=== PATIENT | female | born 1990 | race American Indian/Alaskan Native ===

== ENCOUNTER 2016-06-15 00:39 | Emergency (ER) | payer MEDICAID, OTHER ==
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
[2016-06-15 01:14] VITALS: BP 129/75
[2016-06-15] MEDS ORDERED: Acetaminophen/HYDROcodone 325-10 MG Tab PO ONE (01:21)
== END 2016-06-15 02:00 | disposition home or self-care (01) ==
LOC: DL.ED 00:39
DX: S00.03XA Contusion of scalp, initial encounter (principal); S00.83XA Contusion of other part of head, initial encounter; S10.93XA Contusion of unspecified part of neck, initial encounter; S40.021A Contusion of right upper arm, initial encounter; S80.11XA Contusion of right lower leg, initial encounter; S00.412A Abrasion of left ear, initial encounter; F17.210 Nicotine dependence, cigarettes, uncomplicated; Z98.51 Tubal ligation status; Y04.0XXA Assault by unarmed brawl or fight, initial encounter
CPT/HCPCS: 70450; 70486; 99284; A9270

== ENCOUNTER 2016-09-11 18:01 | Emergency (ER) | payer MEDICAID, OTHER ==
[2016-09-11 18:05] VITALS: BP 112/68
[2016-09-11] MEDS ORDERED: Acetaminophen/HYDROcodone 325-10 MG Tab PO ONE (18:18)
[2016-09-11] MEDS ORDERED: Amoxicillin/Clavulanate K 875-125 MG Tab PO ONE (18:20)
[2016-09-11 19:05] LABS: CHLORIDE,CL 106 mmol/L (101-111); SODIUM,NA 141 mmol/L (135-145)
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
== END 2016-09-11 19:24 | disposition home or self-care (01) ==
LOC: DL.ED 18:01
DX: S02.32XA Fracture of orbital floor, left side, initial encounter for closed fracture (principal); Y04.0XXA Assault by unarmed brawl or fight, initial encounter; Y92.019 Unspecified place in single-family (private) house as the place of occurrence of the external cause; F17.210 Nicotine dependence, cigarettes, uncomplicated; Z88.8 Allergy status to other drugs, medicaments and biological substances
CPT/HCPCS: 36415; 70450; 70486; 80053; 80305; 81001; 85025; 99284; A9270; G0480

== ENCOUNTER 2016-09-12 13:12 | Emergency (ER) | payer MEDICAID, OTHER ==
[2016-09-12 13:26] VITALS: BP 123/72
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
== END 2016-09-12 14:13 | disposition home or self-care (01) ==
LOC: DL.ED 13:12
DX: S02.32XD Fracture of orbital floor, left side, subsequent encounter for fracture with routine healing (principal); F17.210 Nicotine dependence, cigarettes, uncomplicated; Z79.899 Other long term (current) drug therapy; Y00.XXXD Assault by blunt object, subsequent encounter
CPT/HCPCS: 99283

== ENCOUNTER 2016-11-28 19:14 | Emergency (ER) | payer MEDICAID, OTHER ==
[2016-11-28 22:41] VITALS: BP 122/65
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
[2016-11-28] MEDS ORDERED: Acetaminophen 325 MG Tab PO ONE (23:15)
== END 2016-11-28 23:35 | disposition home or self-care (01) ==
LOC: DL.ED 19:14
DX: M20.022 Boutonniere deformity of left finger(s) (principal); R45.6 Violent behavior; F17.210 Nicotine dependence, cigarettes, uncomplicated; Z88.6 Allergy status to analgesic agent
CPT/HCPCS: 73140; 99283; A9270

== ENCOUNTER 2017-07-29 19:11 | Emergency (ER) | payer MEDICAID, OTHER ==
[2017-07-29 19:20] VITALS: BP 110/66
[2017-07-29 19:43] LABS: ACETAMINOPHEN 294.6; CHLORIDE,CL 107 mmol/L (101-111); SODIUM,NA 138 mmol/L (135-145)
[2017-07-29] MEDS ORDERED: Acetylcysteine 20% 200 MG/ML 4 ML Nebulizer Soln SDV PO ONE (20:33)
[2017-07-29] MEDS ORDERED: Sodium Chloride 0.9% 1,000 ML IV ONE (20:47)
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
--- NOTE | 2017-07-31 19:29 | EKG ---
07/29/2017 - CARI WHIPPLE - TIME: 7:17 p.m. FINDINGS: EKG shows a heart rate of 79 beats per minute. EKG shows sinus rhythm. No ST abnormality. No T-wave inversions. [facility] /[id number]
== END 2017-07-29 21:25 ==
LOC: DL.ED 19:11
DX: R79.89 Other specified abnormal findings of blood chemistry (principal); Z88.6 Allergy status to analgesic agent; F17.210 Nicotine dependence, cigarettes, uncomplicated; Y33.XXXA Other specified events, undetermined intent, initial encounter
CPT/HCPCS: 36415; 70486; 80053; 80305; 81001; 82150; 83690; 84703; 85025; 93005; 99285; G0480; J7030

== ENCOUNTER 2018-03-14 21:41 | Emergency (ER) | payer MEDICAID, OTHER ==
[2018-03-14 21:49] VITALS: BP 118/70
--- NOTE | 2018-03-14 21:53 | EDM.PDOC ---
ED HPI GENERAL MEDICAL PROBLEM - General Chief Complaint: Chest Pain Stated Complaint: Pt Thinks She Has Pneumonia [id number] Time Seen by Provider: 03/14/18 21:50 Source of Information: Reports: Patient History Limitations: Reports: No Limitations - History of Present Illness INITIAL COMMENTS - FREE TEXT/NARRATIVE: cold sx x 3 days with productive cough sinus congestion, throat sore during night, maybe fever yesterday as felt sweaty. Using OTC cough and cold medication. Right lower rib pain with cough. Right Thoracic Pain Score (Numeric/FACES): 8 - Related Data Allergies Allergy/AdvReac Type Severity Reaction Status Date / Time ibuprofen Allergy Vomiting Verified 03/14/18 21:49 Home Meds: Home Meds Clindamycin HCl [Cleocin] 1 tab PO ASDIRECTED 03/14/18 [History] Past Medical History - Past Health History Medical/Surgical History: Denies Medical/Surgical History HEENT History: Reports: None Cardiovascular History: Reports: Heart Murmur Respiratory History: Reports: None Gastrointestinal History: Reports: None Genitourinary History: Reports: None RECORDS ASSISTANT History: Reports: None Musculoskeletal History: Reports: None Other Musculoskeletal History: orbital fracture Neurological History: Reports: None Psychiatric History: Reports: None Endocrine/Metabolic History: Reports: None Hematologic History: Reports: None Immunologic History: Reports: None Oncologic (Cancer) History: Reports: None Dermatologic History: Reports: None - Infectious Disease History Infectious Disease History: Reports: None - Past Surgical History Female Surgical History: Reports: Section, Tubal Ligation Social & Family History - Family History Family Medical History: Noncontributory - Caffeine Use Caffeine Use: Reports: Soda - Living Situation & Occupation Living situation: Reports: Single Occupation: Unemployed ED ROS GENERAL - Review of Systems Review Of Systems: ROS reveals no pertinent complaints other than HPI. ED EXAM, GENERAL - Physical Exam Exam: See Below Exam Limited By: No Limitations General Appearance: Alert, No Apparent Distress Eye Exam: Bilateral Eye: EOMI Ears: Normal External Exam, Normal TMs Nose: Normal Inspection Throat/Mouth: Normal Inspection, Normal Voice Head: Atraumatic, Normocephalic Neck: Normal Inspection, Full Range of Motion. No: Lymphadenopathy (L), Lymphadenopathy (R) Respiratory/Chest: No Respiratory Distress, Decreased Breath Sounds (slight right lower poor inspiratory effort). No: Crackles, Rales, Rhonchi, Wheezing Cardiovascular: Normal Peripheral Pulses, Regular Rate, Rhythm GI/Abdominal: Normal Bowel Sounds, Soft Extremities: Normal Inspection Neurological: Alert, Oriented, Normal Cognition Psychiatric: Normal Affect, Normal Mood Skin Exam: Warm, Dry, Intact, Normal Color Course - Vital Signs Last Recorded V/S: Last Vital Signs Temp 97.6 F 03/14/18 21:46 Pulse 114 H 03/14/18 21:46 Resp 18 03/14/18 21:46 BP 118/70 03/14/18 21:46 Pulse Ox 100 03/14/18 21:46 - Orders/Labs/Meds Orders: Active Orders 24 hr Category Date Time Status CXR [Chest 2V] [CR] Urgent Exams 03/14/18 22:00 Taken - Radiology Interpretation Free Text/Narrative:: [facility] Final Radiology Report Call: [phone] assistance Online chat: [email or web address] Name: CARI WHIPPLE Age: 27Years F Date: 03/14/2018 SSN: -- : [id number] Study: XR CHEST 2 VIEWS Requesting Physician: ROSY RESENDEZ Images: 2 Addl Studies: Provided Clinical History: Contrast: Contrast Medium: Contrast Amount: Contrast Method: CONFIDENTIALITY STATEMENT This report is intended only for use by the referring physician, and only in accordance with law. If you received this in error, call [phone]. Page 1 of 1 EXAM: XR Chest, 2 Views EXAM DATE/TIME: 03/14/2018 10:08 PM CLINICAL HISTORY: 27 years old, female; Signs and symptoms; Other: Productive cough, right rib pain TECHNIQUE: XR of the chest, 2 views. COMPARISON: No relevant prior studies available. FINDINGS: Lungs: Unremarkable. No consolidation. Pleural space: Unremarkable. No pleural effusion. No pneumothorax. Heart/Mediastinum: Unremarkable. No cardiomegaly. Bones/joints: Unremarkable. IMPRESSION: No acute findings. Thank you for allowing us to participate in the care of your patient. Dictated and Authenticated by: Salomon Paniagua MD 03/14/2018 10:21 PM Central Time ([place] & [place]) Departure - Departure Time of Disposition: 22:37 Disposition: Home, Self-Care 01 Condition: Good Clinical Impression: Pleurisy URI (upper respiratory infection) Qualifiers: URI type: unspecified viral URI Qualified Code(s): J06.9 - Acute upper respiratory infection, unspecified - Discharge Information *PRESCRIPTION DRUG MONITORING PROGRAM REVIEWED*: Not Applicable *COPY OF PRESCRIPTION DRUG MONITORING REPORT IN PATIENT THANIA: No Instructions: Upper Respiratory Infection, Adult Forms: ED Department Discharge Additional Instructions: tylenol 650mg every 4 hours as needed for discomfort warm pack to chest area continue use of muccinex humidification, follow up if symptoms worsen - My Orders Last 24 Hours: My Active Orders 03/14/18 22:00 CXR [Chest 2V] [CR] Urgent - Assessment/Plan Last 24 Hours: My Active Orders 03/14/18 22:00 CXR [Chest 2V] [CR] Urgent
== END 2018-03-14 22:46 | disposition home or self-care (01) ==
LOC: DL.ED 21:41
DX: J06.9 Acute upper respiratory infection, unspecified (principal); R09.1 Pleurisy; F17.210 Nicotine dependence, cigarettes, uncomplicated; Z88.6 Allergy status to analgesic agent
CPT/HCPCS: 71046; 99283

== ENCOUNTER 2018-04-09 17:23 | Emergency (ER) | payer MEDICAID, OTHER ==
[2018-04-09 17:40] VITALS: BP 103/64
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
== END 2018-04-09 17:58 | disposition home or self-care (01) ==
LOC: DL.ED 17:23
DX: S61.250A Open bite of right index finger without damage to nail, initial encounter (principal); Z88.8 Allergy status to other drugs, medicaments and biological substances; W50.3XXA Accidental bite by another person, initial encounter
CPT/HCPCS: 99283

== ENCOUNTER 2018-07-29 02:20 | Emergency (ER) | payer MEDICAID, OTHER ==
[2018-07-29 03:15] LABS: ANION GAP 10.8; CHLORIDE,CL 108 mmol/L (101-111); SODIUM,NA 139 mmol/L (135-145)
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
== END 2018-07-29 04:30 | disposition home or self-care (01) ==
LOC: DL.ED 02:20
DX: S06.0X9A Concussion with loss of consciousness of unspecified duration, initial encounter (principal); S71.012A Laceration without foreign body, left hip, initial encounter; S80.212A Abrasion, left knee, initial encounter; Z88.6 Allergy status to analgesic agent; Z98.51 Tubal ligation status; F15.10 Other stimulant abuse, uncomplicated; M54.5 Low back pain; V89.2XXA Person injured in unspecified motor-vehicle accident, traffic, initial encounter
CPT/HCPCS: 36415; 70450; 72125; 72128; 72131; 80053; 80305; 81003; 81025; 85025; 99285; G0480

== ENCOUNTER 2023-02-25 13:02 | Emergency (ER) | payer MEDICAID, OTHER ==
[2023-02-25] MEDS ORDERED: Sodium Chloride 0.9% 10 ML Syringe FLUSH PRN (13:41)
[2023-02-25] MEDS ORDERED: Sodium Chloride 0.9% 1,000 ML IV ONE ×2 (13:42→15:59)
[2023-02-25] MEDS ORDERED: Ondansetron 4 MG/2 ML SDV IV ONE (13:42)
[2023-02-25] MEDS ORDERED: HYDROmorphone 1 MG/ML Syringe IVPUSH ONE ×2 (13:43→16:50)
[2023-02-25] MEDS ORDERED: Iopamidol 612 MG/ML 100 ML Bottle IVPUSH ONE (13:43)
[2023-02-25 13:58] LABS: EOSINOPHILS PERCENT AUTO 0.4 % (1.0-3.0); HEMATOCRIT 39.9 % (37.0-47.0); HEMOGLOBIN 12.7 g/dL (12.0-16.0); LYMPHOCYTES PERCENT AUTO 6.3 % (20.5-50.1); MEAN CORPUSCULAR HEMOGLOBIN 25.9 pg (27.0-34.0); MEAN CORPUSCULAR HGB CONC 31.8 g/dL (33.0-35.0); MEAN CORPUSCULAR VOLUME 81.3 fL (80-100); MONOCYTES PERCENT AUTO 4.4 % (2-8); NEUTROPHILS PERCENT AUTO 88.9 % (42.2-75.2); PLATELET COUNT,PLT 375 10^3/uL (150-450); RED BLOOD CELL COUNT 4.91 10^6/uL (4.2-5.4); WHITE BLOOD CELL COUNT,WBC 17.3 10^3/uL (5.0-10.0)
[2023-02-25 13:59] VITALS: BP 111/79; PULSE 93
[2023-02-25 14:20] LABS: A/G RATIO 0.7; ALANINE AMINOTRANSFERASE,ALT 23 U/L (14-59); ALBUMIN 3.8 g/dL (3.4-5.0); ALKALINE PHOSPHATASE 119 U/L (46-116); AMYLASE 26 U/L (25-115); ANION GAP 15.3 mEq/L (7-13); ASPARTATE AMNIOTRANSFERASE,AST 22 U/L (15-37); BILIRUBIN TOTAL 1.4 mg/dL (0.2-1.0); BLOOD UREA NITROGEN,BUN 11 mg/dL (7-18); BUN/CREATININE RATIO 12.5 (No establ ref range); C-REACTIVE PROTEIN 11.94 ng/dL (<=0.50); CALCIUM 9.3 mg/dL (8.5-10.1); CARBON DIOXIDE,CO2 26 mmol/L (21-32); CHLORIDE,CL 98 mmol/L (98-107); CREATININE 0.88 mg/dL (0.55-1.02); EST CRCL DRUG DOSING (CG) 81.82 mL/min; GLUCOSE RANDOM 105 mg/dL (70-99); LIPASE 13 U/L (16-77); POTASSIUM,K 3.3 mmol/L (3.5-5.1); PROTEIN TOTAL,TP 9.2 g/dL (6.4-8.2); SODIUM,NA 136 mmol/L (136-145)
[2023-02-25 14:36] LABS: ESTIMATED GFR 89 mL/min (>=60); ETHANOL BLOOD MEDICAL < 3 mg/dL (0); LACTIC ACID 2.1 mmol/L (0.4-2.0)
[2023-02-25 14:40] LABS: APPEARANCE,URINE CLOUDY (CLEAR); BILIRUBIN,URINE MODERATE (NEGATIVE); COLOR,URINE DARK YELLOW (YELLOW); GLUCOSE,URINE 100 (NEGATIVE); KETONES,URINE 15 (NEGATIVE); LEUKOCYTE ESTERASE,URINE SMALL (NEGATIVE); NITRITE,URINE POSITIVE (NEGATIVE); OCCULT BLOOD,URINE LARGE (NEGATIVE); PH,URINE 8.5 (5.0-9.0); PROTEIN,URINE >=300 (NEGATIVE); UROBILINOGEN,URINE >=8.0 mg/dL (0.2-1.0)
[2023-02-25 14:45] LABS: AMPHETAMINES,URINE POSITIVE (NEGATIVE); BARBITURATES,URINE NEGATIVE (NEGATIVE); BENZODIAZEPINE,URINE NEGATIVE (NEGATIVE); MDMA (ECSTASY), URINE POSITIVE (NEGATIVE); METHADONE,URINE NEGATIVE (NEGATIVE); METHAMPHETAMINES,URINE POSITIVE (NEGATIVE); OPIATES,URINE NEGATIVE (NEGATIVE); OXYCODONE,URINE NEGATIVE (NEGATIVE); PHENCYCLIDINE,URINE NEGATIVE (NEGATIVE); TCA,URINE NEGATIVE (NEGATIVE)
[2023-02-25 14:57] LABS: PROTHROMBIN TIME 9.8 SEC (9.0-12.0); PTT,PARTIAL THROMBOPLSTIN TIME 25.6 SEC (22.0-34.0)
[2023-02-25 15:02] LABS: BACTERIA,URINE MODERATE /HPF (0-FEW/HPF); MUCUS,URINE MODERATE /LPF (NOT SEEN)
[2023-02-25 15:03] LABS: EPITHELIAL CELLS,URINE MODERATE /HPF (NOT SEEN)
[2023-02-25 15:17] LABS: WBC,URINE 30-40 /HPF (0-5/HPF)
[2023-02-25 15:18] LABS: RBC,URINE 50-75 /HPF (0-5)
[2023-02-25] MEDS ORDERED: Piperacillin/Tazobactam 4.5 GM in Sodium Chloride 0.9% 100 ML IV ONE (15:59)
== END 2023-02-25 18:14 ==
LOC: DL.ED 13:02
DX: F15.10 Other stimulant abuse, uncomplicated (principal); N76.0 Acute vaginitis; N39.0 Urinary tract infection, site not specified; K80.00 Calculus of gallbladder with acute cholecystitis without obstruction
CPT/HCPCS: 36415; 74177; 80053; 80305; 80307; 81001; 81025; 82150; 83605; 83690; 85025; 85610; 85730; 86140; 87086; 96361; 96365; 96375; 96376; 99285; J1170; J2405; J2543; J3490; J7030; Q9967